=== PATIENT | female | born 2005 | race Two or more races ===

== ENCOUNTER → 2025-03-25 | Outpatient (REF) | payer OTHER | LOC: M SFHCWAGY 10:11 | PROVIDERS: ATTEND Nurse Practitioner Family | DX: Z12.4 Encounter for screening for malignant neoplasm of cervix (principal); N94.10 Unspecified dyspareunia; Z77.9 Other contact with and (suspected) exposures hazardous to health | CPT/HCPCS: 87070; G0123 ==

== ENCOUNTER → 2025-05-17 | Outpatient (REF) | payer OTHER ==
[2025-05-17 17:45] LABS: GC DNA AMPLIFICATION NEGATIVE (NEGATIVE)
== END ==
LOC: M LAB REF 15:17
PROVIDERS: ATTEND Family Medicine
DX: Z11.3 Encounter for screening for infections with a predominantly sexual mode of transmission (principal)